=== PATIENT | male | born 1985 | race Caucasian/White ===

== ENCOUNTER 2018-05-27 13:28 | Day surgery (SDC) | payer OTHER ==
[2018-05-27] MEDS ORDERED: BUPIVACAINE/EPI 0.5% 30 ML SDV ONE (13:30)
[2018-05-27] MEDS ORDERED: ceFAZolin 2 GM/DEXTROSE 100 ML IV ONE (13:51)
[2018-05-27] MEDS ORDERED: LR 1,000 ML IV ONE (13:52)
--- NOTE | 2018-05-27 14:06 | PDHPUP ---
History & Physical Update H&P update statement: This history and physical update is based on an assessment of the patient which was completed after admission or registration (within 24 hours), but prior to the surgery/procedure. H&P update: H&P reviewed & patient examined, no change in patient's condition since H&P completed
[2018-05-27] MEDS ORDERED: fentaNYL 100 MCG/2 ML INJ ONE (14:22)
[2018-05-27] MEDS ORDERED: PROPOFOL 200 MG/20 ML VIAL ONE (14:22)
[2018-05-27] MEDS ORDERED: MIDAZOLAM 2 MG/2 ML VIAL IVP ONE (14:25)
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
[2018-05-27] MEDS ORDERED: ROCURONIUM 100 MG/10 ML VIAL ONE (14:27)
[2018-05-27] MEDS ORDERED: ONDANSETRON 4 MG/2 ML VIAL ONE (14:27)
[2018-05-27] MEDS ORDERED: LIDOCAINE 2% 5 ML SDV ONE (14:27)
[2018-05-27] MEDS ORDERED: DEXAMETHASONE 4 MG/ML VIAL ONE (14:28)
[2018-05-27] MEDS ORDERED: SUGAMMADEX SODIUM 200 MG/2 ML VIAL IVP ONE (15:15)
[2018-05-27] MEDS ORDERED: KETOROLAC 30 MG/1 ML SDV ONE (15:26)
[2018-05-27] MEDS ORDERED: ONDANSETRON 4 MG/2 ML VIAL IVP PRN (15:28)
[2018-05-27] MEDS ORDERED: oxyCODONE IR 5 MG TAB PO PRN (15:28)
[2018-05-27] MEDS ORDERED: ACETAMINOPHEN 500 MG TAB PO PRN (15:28)
[2018-05-27] MEDS ORDERED: HYDROCODONE/APAP 5/325 TAB PO PRN (15:28)
[2018-05-27] MEDS ORDERED: NALOXONE HCL 0.4 MG/ML INJ IVP PRN (15:28)
[2018-05-27] MEDS ORDERED: PROMETHAZINE HCL 25 MG/ML INJ IVP PRN (15:28)
[2018-05-27] MEDS ORDERED: fentaNYL 100 MCG/2 ML INJ IVP PRN (15:28)
--- NOTE | 2018-05-27 15:41 | POSTOPPROG ---
Post Op Note Date of Operation: 05/27/18 Surgeon: Kash Sage Optical Effects Camera Operator: DION Austin Anesthesiologist: Mary Anesthesia: GET(General Endotracheal) Pre-op Diagnosis: RIH Post-op Diagnosis: RIH Procedure: Robotic assisted RIH c mesh Findings: moderate indirect defect Inf/Abcess present in the surg proc area at time of surgery?: No EBL: Minimal
--- NOTE | 2018-05-27 15:41 | POSTANESTH ---
Post Anesthetic Evaluation Cardiovascular Status: Normal, Stable, Similar to Pre-Op Cond Respiratory Status: Normal, Stable, Similar to Pre-op Cond. Level of Consciousness/Mental Status: Can Participate in Eval, Alert and Oriented Pain Control: Adequate, Prn Tx Ordered Nausea/Vomiting Control: Adequate, Prn Tx Ordered Complications Possibly Related to Anesthesia: None Noted
[2018-05-27] MEDS ORDERED: oxyCODONE IR 5 MG TAB ONE (17:02)
--- NOTE | 2018-05-27 17:44 | GOP ---
[f rep st] OPERATIVE REPORT DATE OF OPERATION: 05/27/2018 SURGEON: Kash Sage MD TRAVEL PROFESSIONAL: Beronica Austin CFA. ANESTHESIA: General endotracheal. ANESTHESIOLOGIST: Dr. Panfilo Hernandez. PREOPERATIVE DIAGNOSIS: Right inguinal hernia. POSTOPERATIVE DIAGNOSIS: Right inguinal hernia. PROCEDURE PERFORMED: Right robotic inguinal hernia repair with mesh. FINDINGS: Moderate indirect defect on the right, successfully reduced and repaired. SPECIMENS: None. ESTIMATED BLOOD LOSS: 5 cc. DESCRIPTION OF PROCEDURE: The patient was greeted in the preoperative suite. Once again, risks, rowena efits, and alternatives were discussed. Consent was signed. He was then brought back to the operati ve suite, placed on the OR table in the supine position. After all anesthesia machines including SCD s were on and functioning, a [employer] time-out was performed. After successful eric ction of general anesthesia, the patient's abdomen was prepped and draped in typical sterile fashion. I commenced the procedure by making a supraumbilical cutdown through which the Veress needle was pa ssed I achieved pneumoperitoneum to 15 mmHg CO2, which was well tolerated by the patient. Through th is, I then inserted an 8 mm trocar. Once successfully in the abdomen, I inserted 2 additional 8 mm t rocars, 1 in the right and 1 in the left upper quadrant, both under direct visualization. I turned m y attention then toward the patient's pelvis. After the robot was successfully docked, the left side appeared normal without any defects. The right side had a moderate indirect defect. I made my cameron toneal flap adjacent to the ASIS and carried this all the way medial to the pubic tubercle I took my flap all the way down to the visceral sac and successfully skeletonized the cord structures off the i ndirect sac. Once the pocket was appropriate, Bard 3D Light large-size mesh was brought. It was tac ked to Ambrosio's ligament medially, as well as on either side of the inferior epigastric vessels. The peritoneal flap was then closed with a V-Loc suture. Pneumoperitoneum was evacuated. Port sites we re closed with Monocryl. Dermabond was placed. The patient was then extubated in the operative suit e and taken to the PACU in satisfactory condition. DRAINS: None. INSTRUMENT COUNT: All counts were reported as correct. /[id number]/MODL
[2018-05-27 18:17] VITALS: BP 125/75
== END 2018-05-27 18:00 | disposition home or self-care (01) ==
LOC: FSGY 13:28
PROVIDERS: ATTEND Surgery
PROC: 0YU54JZ Supplement Right Inguinal Region with Synthetic Substitute, Percutaneous Endoscopic Approach (ICD-10-PCS; principal; 2018-05-27 15:30)
DX: K40.90 Unilateral inguinal hernia, without obstruction or gangrene, not specified as recurrent (principal)
CPT/HCPCS: C1781; J0690; J1100; J1885; J2250; J2405; J2704; J3010